=== PATIENT | female | born 1930 | race Caucasian/White ===

== ENCOUNTER 2019-02-07 13:10 | Emergency (ER) | payer OTHER ==
[~2019-02-07] VITALS: Ht 157.5 cm; Wt 81.7 kg
[2019-02-07] MEDS ORDERED: BLOOD PRESSURE MED (13:55)
[2019-02-07 14:08] LABS: ABSOLUTE BASOPHILS 0.1 thou/uL (0.0-0.2); ABSOLUTE EOSINOPHILS 0.1 thou/uL (0.0-0.7); ABSOLUTE LYMPHOCYTES 1.6 thou/uL (0.8-5.3); ABSOLUTE MONOCYTES 0.9 thou/uL (0.0-1.2); BASOPHILS 0.5 %; EOSINOPHILS 0.5 %; HEMATOCRIT 40.9 % (37.0-47.0); HEMOGLOBIN 13.6 gm/dL (12.0-15.0); LYMPHOCYTES 10.2 %; MCH 31.7 pg (26.0-34.0); MCHC 33.1 g/dL (28.0-37.0); MCV 95.8 fL (80.0-100.0); MONOCYTES 5.8 %; MPV 8.5 fl. (7.2-11.1); NUCLEATED RBCS 0 /100WBC; PLATELET COUNT* 281 thou/uL (150-400); RBC 4.27 mil/uL (4.20-5.00); RDW-CV 13.5 % (10.5-14.5); WBC 15.7 thou/uL (4.0-11.0)
[2019-02-07 14:18] LABS: CALCIUM 9.6 mg/dL (8.5-10.1); CREATININE 0.8 mg/dL (0.6-1.3); POTASSIUM 3.5 mmol/L (3.5-5.1)
[2019-02-07 14:19] LABS: APTT 23.1 Seconds (25.0-31.3); PROTIME 10.4 Seconds (9.20-11.50)
[2019-02-07 14:22] LABS: ALBUMIN 3.4 g/dL (3.4-5.0); TOTAL BILIRUBIN 0.6 mg/dL (<0.1-1.0); TOTAL PROTEIN 6.9 g/dL (6.4-8.2)
--- NOTE | 2019-02-07 14:38 | EKG ---
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: : 1930 Requested By: Carmelo Suarez Order Number: [id number] MD: Marques Mancilla Measurements Intervals [place] Rate: 105 P: 31 MI: 226 QRS: -2 QRSD: 88 T: 19 QT: 362 QTc: 479 Interpretive Statements Sinus tachycardia Supraventricular bigeminy Prolonged MI interval low voltage late transition No previous ECG available for comparison Electronically Signed On 02-07-2019 14:38:23 STUDENT SUPPORT ADVISOR by Marques Mancilla [email or web address] <ELECTRONICALLY SIGNED> By: Marques Mancilla MD, [facility] 02/07/19 1438 1414 1414 Marques Mancilla MD, FACC /EPI
[2019-02-07 15:15] VITALS: BP 147/57
== END 2019-02-07 15:15 | disposition short-term general hospital (02) ==
LOC: M.ERS 13:10
PROVIDERS: Family Medicine
DX: S06.6X0A Traumatic subarachnoid hemorrhage without loss of consciousness, initial encounter (principal); I10 Essential (primary) hypertension; W18.39XA Other fall on same level, initial encounter; Y93.89 Activity, other specified; Y92.89 Other specified places as the place of occurrence of the external cause; Y99.8 Other external cause status